=== PATIENT | female | born 1985 | race Caucasian/White ===

== ENCOUNTER 2019-03-14 17:04 | Emergency (ER) | payer OTHER, MEDICAID ==
[~2019-03-14] VITALS: Ht 157.5 cm; Wt 61.0 kg
[~2019-03-14 17:04] MED LIST: COROTSUS OT; PNV1TABL56 PO; ZOF4T PO
[2019-03-14 17:06] VITALS: BP 111/70
== END 2019-03-14 19:06 | disposition home or self-care (01) ==
LOC: ER 17:05
DX: S20.112A Abrasion of breast, left breast, initial encounter (principal); S20.111A Abrasion of breast, right breast, initial encounter; S40.812A Abrasion of left upper arm, initial encounter; S40.811A Abrasion of right upper arm, initial encounter; Z88.6 Allergy status to analgesic agent; Z79.899 Other long term (current) drug therapy; Z98.890 Other specified postprocedural states; V43.52XA Car driver injured in collision with other type car in traffic accident, initial encounter; Y93.89 Activity, other specified; Y92.488 Other paved roadways as the place of occurrence of the external cause; Y99.8 Other external cause status
CPT/HCPCS: 99281